=== PATIENT | male | born 1955 | race Caucasian/White ===

== ENCOUNTER 2019-05-30 11:00 | Outpatient (RCR) | payer SELFPAY | END 2019-06-29 00:01 | LOC: CR 11:00 | PROVIDERS: Family Provider Family Medicine; Referring Provider Family Medicine; Visit Provider Internal Medicine Cardiovascular Disease | DX: Z98.61 Coronary angioplasty status (principal) ==

== ENCOUNTER 2019-07-06 14:41 | Outpatient (RCR) | payer SELFPAY | END 2019-07-30 23:59 | disposition home or self-care (01) | LOC: CR 14:41 | PROVIDERS: Family Provider Family Medicine; PCP Family Medicine; Referring Provider Internal Medicine Cardiovascular Disease; Visit Provider Internal Medicine Cardiovascular Disease | DX: Z95.5 Presence of coronary angioplasty implant and graft (principal) | CPT/HCPCS: 93798 ==

== ENCOUNTER 2019-08-02 10:45 | Outpatient (RCR) | payer SELFPAY | END 2019-08-28 23:59 | disposition home or self-care (01) | LOC: CR 10:45 | PROVIDERS: Family Provider Family Medicine; PCP Family Medicine; Referring Provider Internal Medicine Cardiovascular Disease; Visit Provider Internal Medicine Cardiovascular Disease | DX: Z95.5 Presence of coronary angioplasty implant and graft (principal) ==

== ENCOUNTER 2019-12-07 13:00 | Outpatient (RCR) | payer SELFPAY | END 2019-12-28 23:59 | disposition home or self-care (01) | LOC: CR 13:00 | PROVIDERS: Family Provider Family Medicine; PCP Family Medicine; Referring Provider Internal Medicine Cardiovascular Disease; Visit Provider Internal Medicine Cardiovascular Disease | DX: Z95.5 Presence of coronary angioplasty implant and graft (principal) ==

== ENCOUNTER 2020-01-11 11:29 | Outpatient (RCR) | payer SELFPAY | END 2020-01-28 23:59 | disposition home or self-care (01) | LOC: CR 11:29 | PROVIDERS: Family Provider Family Medicine; PCP Family Medicine; Referring Provider Internal Medicine Cardiovascular Disease; Visit Provider Internal Medicine Cardiovascular Disease | DX: Z95.5 Presence of coronary angioplasty implant and graft (principal) ==

== ENCOUNTER 2020-02-01 10:35 | Outpatient (RCR) | payer SELFPAY | END 2020-02-28 23:59 | disposition home or self-care (01) | LOC: CR 10:35 | PROVIDERS: Family Provider Family Medicine; PCP Family Medicine; Referring Provider Internal Medicine Cardiovascular Disease; Visit Provider Internal Medicine Cardiovascular Disease | DX: Z95.5 Presence of coronary angioplasty implant and graft (principal) ==

== ENCOUNTER 2020-02-29 14:12 | Outpatient (RCR) | payer SELFPAY | END 2020-03-29 23:59 | disposition home or self-care (01) | LOC: CR 14:12 | PROVIDERS: Family Provider Family Medicine; PCP Family Medicine; Referring Provider Internal Medicine Cardiovascular Disease; Visit Provider Internal Medicine Cardiovascular Disease | DX: Z95.5 Presence of coronary angioplasty implant and graft (principal) ==

== ENCOUNTER 2020-03-31 10:56 | Outpatient (RCR) | payer SELFPAY | END 2020-04-29 23:59 | disposition home or self-care (01) | LOC: CR 10:56 | PROVIDERS: Family Provider Family Medicine; PCP Family Medicine; Referring Provider Internal Medicine Cardiovascular Disease; Visit Provider Internal Medicine Cardiovascular Disease | DX: Z95.5 Presence of coronary angioplasty implant and graft (principal) ==

== ENCOUNTER 2020-04-30 13:27 | Outpatient (RCR) | payer SELFPAY | END 2020-05-29 23:59 | disposition home or self-care (01) | LOC: CR 13:27 | PROVIDERS: Family Provider Family Medicine; PCP Family Medicine; Referring Provider Internal Medicine Cardiovascular Disease; Visit Provider Internal Medicine Cardiovascular Disease | DX: Z95.5 Presence of coronary angioplasty implant and graft (principal) ==

== ENCOUNTER 2020-06-01 10:51 | Outpatient (RCR) | payer SELFPAY | END 2020-06-29 23:59 | disposition home or self-care (01) | LOC: CR 10:51 | PROVIDERS: Family Provider Family Medicine; PCP Family Medicine; Referring Provider Internal Medicine Cardiovascular Disease; Visit Provider Internal Medicine Cardiovascular Disease | DX: Z95.5 Presence of coronary angioplasty implant and graft (principal) ==

== ENCOUNTER 2020-07-03 12:48 | Outpatient (RCR) | payer SELFPAY | END 2020-07-30 23:59 | disposition home or self-care (01) | LOC: CR 12:48 | PROVIDERS: Family Provider Family Medicine; PCP Family Medicine; Referring Provider Internal Medicine; Visit Provider Internal Medicine | DX: Z95.5 Presence of coronary angioplasty implant and graft (principal) ==

== ENCOUNTER 2020-08-01 10:32 | Outpatient (RCR) | payer SELFPAY | END 2020-08-27 23:59 | disposition home or self-care (01) | LOC: CR 10:32 | PROVIDERS: Family Provider Family Medicine; PCP Family Medicine; Referring Provider Internal Medicine; Visit Provider Internal Medicine | DX: Z95.5 Presence of coronary angioplasty implant and graft (principal) ==

== ENCOUNTER 2020-08-31 09:15 | Outpatient (RCR) | payer SELFPAY | END 2020-09-27 23:59 | disposition home or self-care (01) | LOC: CR 09:15 | PROVIDERS: Family Provider Family Medicine; PCP Family Medicine; Referring Provider Internal Medicine; Visit Provider Internal Medicine | DX: Z95.5 Presence of coronary angioplasty implant and graft (principal) ==

== ENCOUNTER 2020-09-28 14:11 | Outpatient (RCR) | payer SELFPAY | END 2020-10-27 23:59 | disposition home or self-care (01) | LOC: CR 14:11 | PROVIDERS: Family Provider Family Medicine; PCP Family Medicine; Referring Provider Internal Medicine; Visit Provider Internal Medicine | DX: Z95.5 Presence of coronary angioplasty implant and graft (principal) ==

== ENCOUNTER 2020-10-30 10:01 | Outpatient (RCR) | payer SELFPAY | END 2020-11-27 23:59 | disposition home or self-care (01) | LOC: CR 10:01 | PROVIDERS: Family Provider Family Medicine; PCP Family Medicine; Referring Provider Internal Medicine; Visit Provider Internal Medicine | DX: Z95.5 Presence of coronary angioplasty implant and graft (principal) ==

== ENCOUNTER 2020-11-28 13:46 | Outpatient (RCR) | payer SELFPAY | END 2020-12-27 23:59 | disposition home or self-care (01) | LOC: CR 13:46 | PROVIDERS: Family Provider Family Medicine; PCP Family Medicine; Referring Provider Internal Medicine; Visit Provider Internal Medicine | DX: Z95.5 Presence of coronary angioplasty implant and graft (principal) ==

== ENCOUNTER 2021-01-04 13:46 | Outpatient (RCR) | payer SELFPAY | END 2021-01-27 23:59 | disposition home or self-care (01) | LOC: CR 13:46 | PROVIDERS: Family Provider Family Medicine; PCP Family Medicine; Referring Provider Internal Medicine; Visit Provider Internal Medicine | DX: Z95.5 Presence of coronary angioplasty implant and graft (principal) ==

== ENCOUNTER 2021-01-29 14:17 | Outpatient (RCR) | payer SELFPAY | END 2021-02-27 23:59 | disposition home or self-care (01) | LOC: CR 14:17 | PROVIDERS: Family Provider Family Medicine; PCP Family Medicine; Referring Provider Internal Medicine; Visit Provider Internal Medicine | DX: Z95.5 Presence of coronary angioplasty implant and graft (principal) ==

== ENCOUNTER 2021-03-01 09:40 | Outpatient (RCR) | payer SELFPAY | END 2021-03-29 23:59 | disposition home or self-care (01) | LOC: CR 09:40 | PROVIDERS: Family Provider Family Medicine; PCP Family Medicine; Referring Provider Internal Medicine; Visit Provider Internal Medicine | DX: Z95.5 Presence of coronary angioplasty implant and graft (principal) ==

== ENCOUNTER 2021-03-30 08:21 | Outpatient (RCR) | payer SELFPAY | END 2021-04-29 23:59 | disposition home or self-care (01) | LOC: CR 08:21 | PROVIDERS: Family Provider Family Medicine; PCP Family Medicine; Referring Provider Internal Medicine; Visit Provider Internal Medicine | DX: Z95.5 Presence of coronary angioplasty implant and graft (principal) ==

== ENCOUNTER 2021-04-30 12:00 | Outpatient (RCR) | payer SELFPAY | END 2021-05-29 23:59 | disposition home or self-care (01) | LOC: CR 12:00 | PROVIDERS: Family Provider Family Medicine; PCP Family Medicine; Referring Provider Internal Medicine; Visit Provider Internal Medicine | DX: Z95.5 Presence of coronary angioplasty implant and graft (principal) ==

== ENCOUNTER 2021-05-30 09:47 | Outpatient (RCR) | payer SELFPAY | END 2021-06-29 23:59 | disposition home or self-care (01) | LOC: CR 09:47 | PROVIDERS: Family Provider Family Medicine; PCP Family Medicine; Referring Provider Internal Medicine; Visit Provider Internal Medicine | DX: Z95.5 Presence of coronary angioplasty implant and graft (principal) ==

== ENCOUNTER 2021-07-02 10:38 | Outpatient (RCR) | payer SELFPAY | END 2021-07-30 23:59 | disposition home or self-care (01) | LOC: CR 10:38 | PROVIDERS: Family Provider Family Medicine; PCP Family Medicine; Referring Provider Internal Medicine; Visit Provider Internal Medicine | DX: Z95.5 Presence of coronary angioplasty implant and graft (principal) | CPT/HCPCS: 93798 ==

== ENCOUNTER 2021-08-06 11:32 | Outpatient (RCR) | payer SELFPAY | END 2021-08-27 23:59 | disposition home or self-care (01) | LOC: CR 11:32 | PROVIDERS: Family Provider Family Medicine; PCP Family Medicine; Referring Provider Internal Medicine; Visit Provider Internal Medicine | DX: Z95.5 Presence of coronary angioplasty implant and graft (principal) ==

== ENCOUNTER 2021-08-28 12:21 | Outpatient (RCR) | payer SELFPAY | END 2021-09-27 23:59 | disposition home or self-care (01) | LOC: CR 12:21 | PROVIDERS: Family Provider Family Medicine; PCP Family Medicine; Referring Provider Internal Medicine; Visit Provider Internal Medicine | DX: Z95.5 Presence of coronary angioplasty implant and graft (principal) ==

== ENCOUNTER 2021-09-28 12:16 | Outpatient (RCR) | payer SELFPAY | END 2021-10-27 23:59 | disposition home or self-care (01) | LOC: CR 12:16 | PROVIDERS: Family Provider Family Medicine; PCP Family Medicine; Referring Provider Internal Medicine; Visit Provider Internal Medicine | DX: Z95.5 Presence of coronary angioplasty implant and graft (principal) | CPT/HCPCS: 93798 ==

== ENCOUNTER 2021-10-29 11:37 | Outpatient (RCR) | payer SELFPAY | END 2021-11-27 23:59 | disposition home or self-care (01) | LOC: CR 11:37 | PROVIDERS: Family Provider Family Medicine; PCP Family Medicine; Referring Provider Internal Medicine; Visit Provider Internal Medicine | DX: Z95.5 Presence of coronary angioplasty implant and graft (principal) ==

== ENCOUNTER 2021-11-28 11:17 | Outpatient (RCR) | payer SELFPAY | END 2021-12-27 23:59 | disposition home or self-care (01) | LOC: CR 11:17 | PROVIDERS: Family Provider Family Medicine; PCP Family Medicine; Referring Provider Internal Medicine; Visit Provider Internal Medicine | DX: Z95.5 Presence of coronary angioplasty implant and graft (principal) ==

== ENCOUNTER 2021-12-28 10:36 | Outpatient (RCR) | payer SELFPAY | END 2022-01-27 23:59 | disposition home or self-care (01) | LOC: CR 10:36 | PROVIDERS: Family Provider Family Medicine; PCP Family Medicine; Referring Provider Internal Medicine; Visit Provider Internal Medicine | DX: Z95.5 Presence of coronary angioplasty implant and graft (principal) ==

== ENCOUNTER 2022-01-28 14:08 | Outpatient (RCR) | payer SELFPAY | END 2022-02-27 23:59 | disposition home or self-care (01) | LOC: CR 14:08 | PROVIDERS: Family Provider Family Medicine; PCP Family Medicine; Referring Provider Internal Medicine; Visit Provider Internal Medicine | DX: Z95.5 Presence of coronary angioplasty implant and graft (principal) ==

== ENCOUNTER 2022-02-28 12:35 | Outpatient (RCR) | payer SELFPAY | END 2022-03-29 23:59 | disposition home or self-care (01) | LOC: CR 12:35 | PROVIDERS: Family Provider Family Medicine; PCP Family Medicine; Referring Provider Internal Medicine; Visit Provider Internal Medicine | DX: Z95.5 Presence of coronary angioplasty implant and graft (principal) ==

== ENCOUNTER 2022-04-03 11:08 | Outpatient (RCR) | payer SELFPAY | END 2022-04-29 23:59 | disposition home or self-care (01) | LOC: CR 11:08 | PROVIDERS: Family Provider Family Medicine; PCP Family Medicine; Referring Provider Internal Medicine; Visit Provider Internal Medicine | DX: Z95.5 Presence of coronary angioplasty implant and graft (principal) ==

== ENCOUNTER 2022-04-30 14:31 | Outpatient (RCR) | payer SELFPAY | END 2022-05-29 23:59 | disposition home or self-care (01) | LOC: CR 14:31 | PROVIDERS: Family Provider Family Medicine; PCP Family Medicine; Referring Provider Internal Medicine; Visit Provider Internal Medicine | DX: Z95.5 Presence of coronary angioplasty implant and graft (principal) ==

== ENCOUNTER 2022-05-30 14:35 | Outpatient (RCR) | payer SELFPAY | END 2022-06-29 23:59 | disposition home or self-care (01) | LOC: CR 14:35 | PROVIDERS: Family Provider Family Medicine; PCP Family Medicine; Referring Provider Internal Medicine; Visit Provider Internal Medicine | DX: Z95.5 Presence of coronary angioplasty implant and graft (principal) ==

== ENCOUNTER 2022-07-03 12:50 | Outpatient (RCR) | payer SELFPAY | END 2022-07-30 23:59 | disposition home or self-care (01) | LOC: CR 12:50 | PROVIDERS: Family Provider Family Medicine; PCP Family Medicine; Referring Provider Internal Medicine; Visit Provider Internal Medicine | DX: Z95.5 Presence of coronary angioplasty implant and graft (principal) ==

== ENCOUNTER 2022-07-31 15:08 | Outpatient (RCR) | payer SELFPAY | END 2022-08-27 23:59 | disposition home or self-care (01) | LOC: CR 15:08 | PROVIDERS: Family Provider Family Medicine; PCP Family Medicine; Referring Provider Internal Medicine; Visit Provider Internal Medicine | DX: Z95.5 Presence of coronary angioplasty implant and graft (principal) ==

== ENCOUNTER → 2022-08-07 14:11 | Outpatient (BNVA) | payer MEDICARE, OTHER, SELFPAY | PROVIDERS: Family Provider Family Medicine; PCP Family Medicine; Visit Provider Internal Medicine | DX: I25.10 Atherosclerotic heart disease of native coronary artery without angina pectoris (principal); Z98.61 Coronary angioplasty status; E78.5 Hyperlipidemia, unspecified; I21.9 Acute myocardial infarction, unspecified; I12.9 Hypertensive chronic kidney disease with stage 1 through stage 4 chronic kidney disease, or unspecified chronic kidney disease; N18.9 Chronic kidney disease, unspecified; Z87.891 Personal history of nicotine dependence | CPT/HCPCS: 99214 ==

== ENCOUNTER 2022-08-28 14:59 | Outpatient (RCR) | payer SELFPAY | END 2022-09-27 23:59 | disposition home or self-care (01) | LOC: CR 14:59 | PROVIDERS: Family Provider Family Medicine; PCP Family Medicine; Referring Provider Internal Medicine; Visit Provider Internal Medicine | DX: Z95.5 Presence of coronary angioplasty implant and graft (principal) ==

== ENCOUNTER 2022-09-30 13:27 | Outpatient (RCR) | payer SELFPAY | END 2022-10-27 23:59 | disposition home or self-care (01) | LOC: CR 13:27 | PROVIDERS: Family Provider Family Medicine; PCP Family Medicine; Referring Provider Internal Medicine; Visit Provider Internal Medicine | DX: Z95.5 Presence of coronary angioplasty implant and graft (principal) ==

== ENCOUNTER 2022-10-28 15:37 | Outpatient (RCR) | payer SELFPAY | END 2022-11-27 23:59 | disposition home or self-care (01) | LOC: CR 15:37 | PROVIDERS: Family Provider Family Medicine; PCP Family Medicine; Referring Provider Internal Medicine; Visit Provider Internal Medicine | DX: Z95.5 Presence of coronary angioplasty implant and graft (principal) ==

== ENCOUNTER 2022-11-29 13:14 | Outpatient (RCR) | payer SELFPAY | END 2022-12-27 23:59 | disposition home or self-care (01) | LOC: CR 13:14 | PROVIDERS: Family Provider Family Medicine; PCP Family Medicine; Referring Provider Internal Medicine; Visit Provider Internal Medicine | DX: Z95.5 Presence of coronary angioplasty implant and graft (principal) ==

== ENCOUNTER 2022-12-30 10:46 | Outpatient (RCR) | payer SELFPAY | END 2023-01-27 23:59 | disposition home or self-care (01) | LOC: CR 10:46 | PROVIDERS: Family Provider Family Medicine; PCP Family Medicine; Referring Provider Internal Medicine; Visit Provider Internal Medicine | DX: Z95.5 Presence of coronary angioplasty implant and graft (principal) ==

== ENCOUNTER → 2023-01-08 15:08 | Outpatient (BNVA) | payer MEDICARE, OTHER, SELFPAY | PROVIDERS: Family Provider Family Medicine; PCP Family Medicine; Visit Provider Internal Medicine | DX: R00.1 Bradycardia, unspecified (principal) | CPT/HCPCS: 93005 ==

== ENCOUNTER 2023-01-28 14:23 | Outpatient (RCR) | payer SELFPAY | END 2023-02-27 23:59 | disposition home or self-care (01) | LOC: CR 14:23 | PROVIDERS: Family Provider Family Medicine; PCP Family Medicine; Referring Provider Internal Medicine; Visit Provider Internal Medicine | DX: Z95.5 Presence of coronary angioplasty implant and graft (principal) ==

== ENCOUNTER 2023-02-28 11:15 | Outpatient (RCR) | payer SELFPAY | END 2023-03-29 23:59 | disposition home or self-care (01) | LOC: CR 11:15 | PROVIDERS: Family Provider Family Medicine; PCP Family Medicine; Referring Provider Internal Medicine; Visit Provider Internal Medicine | DX: Z95.5 Presence of coronary angioplasty implant and graft (principal) ==

== ENCOUNTER 2023-04-01 09:02 | Outpatient (RCR) | payer SELFPAY | END 2023-04-29 23:59 | disposition home or self-care (01) | LOC: CR 09:02 | PROVIDERS: Family Provider Family Medicine; PCP Family Medicine; Referring Provider Internal Medicine; Visit Provider Internal Medicine | DX: Z95.5 Presence of coronary angioplasty implant and graft (principal) ==

== ENCOUNTER 2023-05-01 14:59 | Outpatient (RCR) | payer SELFPAY | END 2023-05-29 23:59 | disposition home or self-care (01) | LOC: CR 14:59 | PROVIDERS: Family Provider Family Medicine; PCP Family Medicine; Referring Provider Internal Medicine; Visit Provider Internal Medicine | DX: Z95.5 Presence of coronary angioplasty implant and graft (principal) ==

== ENCOUNTER 2023-06-03 11:10 | Outpatient (RCR) | payer SELFPAY | END 2023-06-29 23:59 | disposition home or self-care (01) | LOC: CR 11:10 | PROVIDERS: Family Provider Family Medicine; PCP Family Medicine; Referring Provider Internal Medicine; Visit Provider Internal Medicine | DX: Z95.5 Presence of coronary angioplasty implant and graft (principal) ==

== ENCOUNTER 2023-07-01 09:39 | Outpatient (RCR) | payer SELFPAY | END 2023-07-30 23:59 | disposition home or self-care (01) | LOC: CR 09:39 | PROVIDERS: Family Provider Family Medicine; PCP Family Medicine; Referring Provider Internal Medicine; Visit Provider Internal Medicine | DX: Z95.5 Presence of coronary angioplasty implant and graft (principal) ==

== ENCOUNTER 2023-07-31 10:46 | Outpatient (RCR) | payer SELFPAY | END 2023-08-28 23:59 | disposition home or self-care (01) | LOC: CR 10:46 | PROVIDERS: Family Provider Family Medicine; PCP Family Medicine; Referring Provider Internal Medicine; Visit Provider Internal Medicine | DX: Z95.5 Presence of coronary angioplasty implant and graft (principal) ==

== ENCOUNTER → 2023-08-06 13:44 | Outpatient (BNVA) | payer MEDICARE, OTHER, SELFPAY | PROVIDERS: Family Provider Family Medicine; PCP Family Medicine; Visit Provider Internal Medicine | DX: I25.10 Atherosclerotic heart disease of native coronary artery without angina pectoris (principal); I12.9 Hypertensive chronic kidney disease with stage 1 through stage 4 chronic kidney disease, or unspecified chronic kidney disease; N18.9 Chronic kidney disease, unspecified; Z98.61 Coronary angioplasty status; E78.5 Hyperlipidemia, unspecified; I25.2 Old myocardial infarction; Z87.891 Personal history of nicotine dependence | CPT/HCPCS: 99214 ==

== ENCOUNTER 2023-09-01 11:12 | Outpatient (RCR) | payer SELFPAY | END 2023-09-28 23:59 | disposition home or self-care (01) | LOC: CR 11:12 | PROVIDERS: Family Provider Family Medicine; PCP Family Medicine; Referring Provider Internal Medicine; Visit Provider Internal Medicine | DX: Z95.5 Presence of coronary angioplasty implant and graft (principal) ==

== ENCOUNTER 2023-10-30 12:44 | Outpatient (RCR) | payer SELFPAY | END 2023-11-28 23:59 | disposition home or self-care (01) | LOC: CR 12:44 | PROVIDERS: Family Provider Family Medicine; PCP Family Medicine; Referring Provider Internal Medicine; Visit Provider Internal Medicine | DX: Z95.5 Presence of coronary angioplasty implant and graft (principal) ==

== ENCOUNTER 2023-12-02 11:12 | Outpatient (RCR) | payer SELFPAY | END 2023-12-28 23:59 | disposition home or self-care (01) | LOC: CR 11:12 | PROVIDERS: Family Provider Family Medicine; PCP Family Medicine; Referring Provider Internal Medicine; Visit Provider Internal Medicine | DX: Z95.5 Presence of coronary angioplasty implant and graft (principal) ==

== ENCOUNTER 2023-12-29 14:59 | Outpatient (RCR) | payer SELFPAY | END 2024-01-28 23:59 | disposition home or self-care (01) | LOC: CR 14:59 | PROVIDERS: Family Provider Family Medicine; PCP Family Medicine; Referring Provider Internal Medicine; Visit Provider Internal Medicine | DX: Z95.5 Presence of coronary angioplasty implant and graft (principal) ==

== ENCOUNTER 2024-01-29 08:16 | Outpatient (RCR) | payer SELFPAY | END 2024-03-04 09:20 | disposition home or self-care (01) | LOC: CR 08:16 | PROVIDERS: Family Provider Family Medicine; PCP Family Medicine; Referring Provider Internal Medicine; Visit Provider Internal Medicine | DX: Z95.5 Presence of coronary angioplasty implant and graft (principal) ==

== ENCOUNTER 2024-02-29 11:55 | Outpatient (RCR) | payer SELFPAY | END 2024-03-29 23:59 | disposition home or self-care (01) | LOC: CR 11:55 | PROVIDERS: Family Provider Family Medicine; PCP Family Medicine; Referring Provider Internal Medicine; Visit Provider Internal Medicine | DX: Z95.5 Presence of coronary angioplasty implant and graft (principal) ==

== ENCOUNTER 2024-03-30 12:23 | Outpatient (RCR) | payer SELFPAY | END 2024-04-29 23:59 | disposition home or self-care (01) | LOC: CR 12:23 | PROVIDERS: Family Provider Family Medicine; PCP Family Medicine; Referring Provider Internal Medicine; Visit Provider Internal Medicine | DX: Z95.5 Presence of coronary angioplasty implant and graft (principal) ==

== ENCOUNTER 2024-04-30 12:46 | Outpatient (RCR) | payer SELFPAY | END 2024-05-29 23:59 | disposition home or self-care (01) | LOC: CR 12:46 | PROVIDERS: Family Provider Family Medicine; PCP Family Medicine; Referring Provider Internal Medicine; Visit Provider Internal Medicine | DX: Z95.5 Presence of coronary angioplasty implant and graft (principal) | CPT/HCPCS: 93798 ==

== ENCOUNTER 2024-05-31 12:16 | Outpatient (RCR) | payer SELFPAY | END 2024-06-29 23:59 | disposition home or self-care (01) | LOC: CR 12:16 | PROVIDERS: Family Provider Family Medicine; PCP Family Medicine; Referring Provider Internal Medicine; Visit Provider Internal Medicine | DX: Z95.5 Presence of coronary angioplasty implant and graft (principal) ==

== ENCOUNTER 2024-07-08 08:54 | Outpatient (RCR) | payer SELFPAY | END 2024-07-30 23:59 | disposition home or self-care (01) | LOC: CR 08:54 | PROVIDERS: Family Provider Family Medicine; PCP Family Medicine; Referring Provider Internal Medicine; Visit Provider Internal Medicine | DX: Z95.5 Presence of coronary angioplasty implant and graft (principal) ==

== ENCOUNTER 2024-08-03 13:32 | Outpatient (RCR) | payer SELFPAY | END 2024-08-27 23:59 | disposition home or self-care (01) | LOC: CR 13:32 | PROVIDERS: Family Provider Family Medicine; PCP Family Medicine; Referring Provider Internal Medicine; Visit Provider Internal Medicine | DX: Z95.5 Presence of coronary angioplasty implant and graft (principal) ==

== ENCOUNTER → 2024-08-04 13:21 | Outpatient (BNVA) | payer MEDICARE, OTHER, SELFPAY | PROVIDERS: Family Provider Family Medicine; PCP Family Medicine; Visit Provider Internal Medicine | DX: I25.10 Atherosclerotic heart disease of native coronary artery without angina pectoris (principal); I12.9 Hypertensive chronic kidney disease with stage 1 through stage 4 chronic kidney disease, or unspecified chronic kidney disease; N18.9 Chronic kidney disease, unspecified; Z98.61 Coronary angioplasty status; E78.5 Hyperlipidemia, unspecified; I25.2 Old myocardial infarction; F17.220 Nicotine dependence, chewing tobacco, uncomplicated | CPT/HCPCS: 99214 ==

== ENCOUNTER 2024-08-28 11:29 | Outpatient (RCR) | payer SELFPAY | END 2024-09-27 23:59 | disposition home or self-care (01) | LOC: CR 11:29 | PROVIDERS: Family Provider Family Medicine; PCP Family Medicine; Referring Provider Internal Medicine; Visit Provider Internal Medicine | DX: Z95.5 Presence of coronary angioplasty implant and graft (principal) ==

== ENCOUNTER 2024-09-28 13:14 | Outpatient (RCR) | payer SELFPAY | END 2024-10-27 23:59 | disposition home or self-care (01) | LOC: CR 13:14 | PROVIDERS: Family Provider Family Medicine; PCP Family Medicine; Referring Provider Internal Medicine; Visit Provider Internal Medicine | DX: Z95.5 Presence of coronary angioplasty implant and graft (principal) ==

== ENCOUNTER 2024-10-28 10:35 | Outpatient (RCR) | payer SELFPAY | END 2024-11-27 23:59 | disposition home or self-care (01) | LOC: CR 10:35 | PROVIDERS: Family Provider Family Medicine; PCP Family Medicine; Referring Provider Internal Medicine; Visit Provider Internal Medicine | DX: Z95.5 Presence of coronary angioplasty implant and graft (principal) | CPT/HCPCS: 93798 ==

== ENCOUNTER 2024-11-12 09:51 | Outpatient (CLI) | payer MEDICARE, OTHER, SELFPAY | END 2024-11-12 09:52 | disposition home or self-care (01) | LOC: RAD 11-16 06:53 | PROVIDERS: Family Provider Family Medicine; PCP Family Medicine; Visit Provider Internal Medicine | DX: R06.02 Shortness of breath (principal); I12.9 Hypertensive chronic kidney disease with stage 1 through stage 4 chronic kidney disease, or unspecified chronic kidney disease; N18.9 Chronic kidney disease, unspecified; F17.220 Nicotine dependence, chewing tobacco, uncomplicated | CPT/HCPCS: 93005; 99214 ==

== ENCOUNTER 2024-11-30 11:01 | Outpatient (RCR) | payer SELFPAY | END 2024-12-27 23:59 | disposition home or self-care (01) | LOC: CR 11:01 | PROVIDERS: PCP Family Medicine; Referring Provider Internal Medicine; Visit Provider Internal Medicine | DX: Z95.5 Presence of coronary angioplasty implant and graft (principal) ==

== ENCOUNTER 2024-12-01 07:27 | Outpatient (CLI) | payer MEDICARE, OTHER, SELFPAY ==
[2024-12-01 07:49] VITALS: BMI 25.4
--- NOTE | 2024-12-01 07:52 | ECG_ITS ---
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 Interpretive Statements EXERCISE MIBI : EXERCISE DATA: The patient was exercised by Gene protocol. Baseline heart rate was 62 beats per minute. Baseline blood pressure was 86/63 millimeters of mercury. Maximal predicted heart rate was 149 beats per minute. Maximum heart rate achieved was 133 which was 89% of the maximum predicted heart rate. Maximum blood pressure was 160/75 millimeters of mercury. Total exercise time was 11 minutes and 45 seconds. Maximum METs achieved was 15.8. The reason for ending the test was completion of protocol. The patient complained of shortness of breath during the stress test, which then resolved at the end of the test. ELECTROCARDIOGRAM: BASELINE: Showed sinus rhythm, normal axis, no significant ST-T changes at the baseline noted. [] EXERCISE: At the peak exercise level, [] No significant ST-T changes suggestive of ischemia noted. [] RECOVERY: During the recovery period, heart rate dropped appropriately. No significant ST-T changes in the recovery suggestive of ischemia noted. [] CONCLUSION: 1. Exercise capacity is excellent 2. Heart rate response was appropriate 3. Blood pressure response was appropriate. 4. Symptoms not suggestive of ischemia. 5. Electrocardiogram portion of the stress test was not suggestive of ischemia. 6. Nuclear scan will be documented separately. Electronically Signed On 12-16-2024 00:24:58 CDT by Oneil Camilo M.D. [email or web address]
--- NOTE | 2024-12-01 07:53 | NMCV_ITS ---
NM tania perf SPECT r/s* [id number] Dipesh Dominguez Age: 69 Gender: M : 1955 Exam Date: 12/01/2024 08:58 Ordering Phys: Katelyn Orozco NP Technologist: IVAN Pearson Exam [facility]: [facility] Indications: cp STRESS TEST Please see separate stress test report in [facility] for full findings IMAGE PROTOCOL Rest/Stress 1 Exercise Day Radiopharmaceutical Dose (mCi) Administration Site Administered by Rest: Tc-99m 10.4 IV IVAN Easton Sestamibi Stress:Tc-99m 32.6 IV IVAN Pearson Sestamiessence Rest: 01-Dec-2024 60 Discovery 630 Stress: 01-Dec-2024 30 Discovery 630 Radiopharmaceutical was injected at 85 % maximum heart rate. Images obtained in supine and prone position. SPECT RESULTS Technical Quality: Good Raw Data Analysis: Normal Image Corrections: No attenuation or motion correction applied Summed Stress Score: 4 Summed Rest Score: 0 Summed Difference Score: 4 PERFUSION FINDINGS Medium to large sized area of reversible perfusion defect seen in the inferior wall. This is consistent with medium to large sized area of ischemia in the RCA territory. FUNCTIONAL RESULTS (calculated via Gated SPECT) Stress Image LV EF (%): 70 Stress EDV (mL):93 TID: 0.95 Stress ESV (mL):28 FUNCTIONAL FINDINGS: There is normal left ventricular systolic function. IMPRESSIONS 1. Medium to large sized area of ischemia in RCA territory. 2. LV systolic function is normal Oneil Camilo MD (Electronically Signed) Final Date: 06 December 2024 11:22 S
[2024-12-01 09:50] VITALS: BP 132/84; PULSE 78
== END 2024-12-01 07:28 | disposition home or self-care (01) ==
LOC: CDL 07:30
PROVIDERS: PCP Family Medicine; Visit Provider Nurse Practitioner Family
DX: R06.02 Shortness of breath (principal); R93.1 Abnormal findings on diagnostic imaging of heart and coronary circulation
CPT/HCPCS: 36415; 78452; 93017; A9500

== ENCOUNTER 2024-12-07 12:23 | Outpatient (CLI) | payer MEDICARE, OTHER, SELFPAY ==
[2024-12-07 12:52] LABS: Basophils # 0.1 10^3/uL (0.0-0.1); Basophils % 0.9 %; Eosinophils # 0.4 10^3/uL (0.0-0.8); Eosinophils % 6.6 %; Hematocrit 44.1 % (37-53); Lymphocytes # 1.1 10^3/uL (0.8-4.8); Lymphocytes % 20.9 %; Mean Corpuscular HGB Conc 33.6 g/dL (30-55); Mean Corpuscular Hemoglobin 29.8 pg (27-33); Mean Corpuscular Volume 88.7 fl (82-101); Mean Platelet Volume 10.9 fL (7.4-10.4); Monocytes # 0.7 10^3/uL (0.2-0.9); Monocytes % 11.9 %; Neutrophils # 3.24 10^3/uL (1.8-7.7); Neutrophils % 59.5 %; Nucleated Red Blood Cells % 0 %; Platelet Count 149 10^3/cmm (157-399); Red Blood Count 4.97 10^6/uL (3.85-5.65); Red Cell Distribution Width 12.3 % (12.1-15.1); White Blood Count 5.45 10^3/uL (3.29-11.43)
[2024-12-07 13:09] LABS: Blood Urea Nitrogen 12 mg/dL (8-23); Calcium 9.3 mg/dL (8.5-10.5); Carbon Dioxide 25 mmol/L (22-29); Chloride 103 mmol/L (98-107); Glucose 129 mg/dL (65-115); Osmolality Calculated 289 mOsm/kg (285-295); Sodium 139 mmol/L (136-145)
[2024-12-07 13:11] LABS: INR 0.96 (0.83-1.21); Prothrombin Time (Patient) 13.4 Seconds (12.0-15.1)
== END 2024-12-07 12:24 | disposition home or self-care (01) ==
LOC: LAB 12:23
PROVIDERS: PCP Family Medicine; Visit Provider Internal Medicine
DX: R94.39 Abnormal result of other cardiovascular function study (principal); I10 Essential (primary) hypertension
CPT/HCPCS: 36415; 80048; 85025; 85610

== ENCOUNTER 2024-12-10 08:50 | Outpatient (CLI) | payer MEDICARE, OTHER, SELFPAY ==
[2024-12-10] VITALS (14 sets, daily range): BP systolic 95–123; BP diastolic 61–82; PULSE 50–57; RESP 12–18; TEMP 36.6; O2SAT 92–99; BMI 25.4
--- NOTE | 2024-12-10 08:30 | XACV_ITS ---
Exam Room: 2 Ht: 180 cm Wt: 83 kg BSA: 2.04 m2 Gender: Male : 1955 Any Known Allergies: Codeine Exam Priority: Routine Procedure(s): Procedure Description: Diagnostic procedure Procedure Description: Left Heart Catheterization Procedure Description: Left ventriculography Procedure Description: Coronary Angiography Diagnostic Cath Status: Elective Diagnostic Findings * INDICATION: New onset angina/ abnormal stress test. * No disease noted in the Left Main, Left Anterior Descending, Right, or Circumflex coronary arteries. Patent prior stents in RCA, diagonal and left circumflex arteries. * Coronary angiography shows right dominance. Conclusions 1. No disease noted in the Left Main, Left Anterior Descending, Right, or Circumflex coronary arteries. Patent prior stents in RCA, diagonal and left circumflex arteries. 2. Normal left ventricular systolic function. Ejection fraction of 60%. Recommendations * Continue aggressive risk factor modification. * Outpatient cardiology follow up in 2 weeks. Interventional RX Recommendation: medical therapy and/or counseling Diagnostic RX Recommendation: medical therapy and/or counseling Anticoagulation: Heparin Ventriculography Ejection Fraction: 60.0 % Pressures Phase:Rest AO : 98 / 74 ( 87 ) @ 11:00:00 AM 103 / 54 ( 75 ) @ 11:07:00 AM 101 / 53 ( 75 ) @ 11:07:00 AM LV : / - @ 11:06:00 AM / - @ 11:07:00 AM / - 15 @ 11:07:00 AM Valves Phase:DefaultPhase AV : 9.0 @ 10:12:24 AM 9.0 @ 10:12:24 AM AV Mean Gradient: 12.0 @ 10:12:24 AM Clinical Evaluation EBL: 5mL-10mL Procedural Details Pre-Procedure Time Out. Identified patient by full name and date of as verbalized by the patient/guarantor. Does the consent match the physician's order: Yes. Accurate & Complete Informed Consent: Yes. Inpatient/Outpatient History & Physical on Chart: Yes. If H&P is completed, is and addenduem needed: No; If yes, is the addendum complete: N/A. Visualize and Verify Site with Patient/Guarantor: N/A. Relevant Radiology Images available: Yes. Pre-op teaching completed and patient verbalized understanding. The risks, benefits, and alternatives of sedation and/or procedure were discussed by physician. The patient agrees to continue. Procedure started. Physician arrived. Current Diagnosis : Chest Pain. [facility] Clinical Fraility Score: 3: Managing Well. Chief Privacy Officer Indications: Suspected CAD. Chest Pain Symptom Assessment: Typical Angina Symptoms. Correct patient, site and procedure confirmed by cath team. Current diagnosis: Chest Pain. PERRLA. Strong, equal hand tobacco grower bilaterally. Lungs clear x 5 lobes. IV Site on Arrival: 20 gauge in the left anticubital. IV Fluids: 0.9% NaCl at KVO. 0 mL infused prior to microbiological lab technician. Pre Procedural Pulses: bilateral dorsalis pedis was 3+. Pre Procedural Pulses: bilateral posterior tibial was 3+. Pre Procedural Pulses: bilateral radial was 3+. Oxygen started at 2liters/min via nasal canula. right groin was prepped with chloroprep then draped in the usual sterile fashion. right radial was prepped with chloroprep then draped in the usual sterile fashion. Baseline sample Acquired. HR: 61 BPM. Physician scrubbed in. Immediate Pre-Procedure Time Out. Correct Patient: Yes; Correct Procedure: Yes; Correct Site: Yes; Correct Patient Position: Yes; Correct Supplies: Yes; Dried Flammable Prep: Yes; Blood Products Available: N/A;. Lidocaine 1% infiltrated to the right radial. Arterial access obtained with micropuncture set. A 5 sao tomean TIG catheter in over wire. Catheter removed over the exchange wire. A 5 sao tomean JR4 catheter in over wire. Multiple views taken of right coronary artery. Catheter removed over the exchange wire. A 5 sao tomean JL3.5 catheter in over wire. Multiple views taken of left coronary artery. Catheter removed over the exchange wire. A 5 sao tomean Angled Pig catheter in over wire. Catheter removed over the exchange wire. A 5 sao tomean JR4 catheter in over wire. Catheter removed over the exchange wire. A 5 sao tomean Angled Pig catheter in over wire. EDP Sample taken: LV 111/-2,17; HR: 50 BPM; SpO2: 96%. LV gram performed in [place] @ 10 mL/second for a total of 30 mL. EDP Sample taken: LV 111/-3,15; HR: 50 BPM; SpO2: 95%. Pullback taken: LV 111/-3,15; AO 103/54(75); Mean: 12mmHg, Peak to Peak: 9mmHg, SEP: 16sec/min; HR: 50 BPM; SpO2: 96%. Catheter removed over the exchange wire. Physician scrubbed out. A TR Band was successful obtaining hemostatsis at the Right Radial artery insertion site. Vital chart was stopped. Post Procedure: Pulses reassessed and unchanged. PERRLA. Strong, equal hand tobacco grower bilaterally. No VTE prophylaxis required. Medication's Wasted: Lidocaine 1% = 18 mL. Medication's Wasted: Nitro = 49.8 mcg. Medication's Wasted: Heparin = 1000 units. Medication's Wasted: Other = Fentanyl 50 mcg. Total IV fluids: 270 mL. Post-op diagnosis: Non-obstructive CAD. Complications: None. Estimated blood loss: 5mL-10mL. Responsiveness - Normal response to verbal stimuli; alert and oriented, PERRLA. Airway - Unaffected, no intervention required; spontaneous ventilation. Circulation: W/N/L, pulses unchanged. Nausea/Vomiting: No. Procedure completed. Patient transferred by wheelchair to CPRU. Access Site Site: Right Radial artery Sheath Size: 6 Fr Hemostasis Method: TR Band Hemostasis Success: Successful Procedure Medications Start: 9:43 AM Stop: 9:43 AM Medication: Zofran (ondansetron) Amount: 4 mg Route: I.V. Start: 9:43 AM Stop: 9:43 AM Medication: Versed Amount: 1 mg Route: I.V. Start: 9:43 AM Stop: 9:43 AM Medication: Fentanyl Amount: 50 mcg Route: I.V. Start: 9:50 AM Stop: 9:50 AM Medication: Versed Amount: 1 mg Route: I.V. Start: 9:51 AM Stop: 9:51 AM Medication: Nitrogylcerin Amount: 200 mcg Route: I.A. Start: 9:52 AM Stop: 9:52 AM Medication: Heparin Amount: 5000 units Route: I.V. Start: 10:04 AM Stop: 10:04 AM Medication: 0.9% Saline Amount: 250 ml Route: I.V. bolus I, the attending physician, have reviewed and verified all procedure medications. Yes, all medications given per verbal order History/Risk Factors Hypertension: Yes Dyslipidemia: Yes Peripheral Arterial Disease (PAD): No Myocardial Infarction (IN): Yes Obesity: No Renal Disease: No Tobacco Use: Current/Recent(w/in 1 year) Prior Interventions PCI: Yes CABG: No Valve Surgery: No Date of PCI: 10/16/2005 Report Signatures Finalized by Oneil Camilo MD on 12/25/2024 03:12 PM
[2024-12-10] MEDS: diphenhydrAMINE 50 mg Capsule PO (09:25)
[2024-12-10] MEDS: aspirin 325 mg Tablet PO (09:25)
--- NOTE | 2024-12-10 09:43 | W.PM.OPSUD ---
Surgery/Procedure H&P Update DATE OF PROCEDURE: December 10, 2024 DATE H&P PERFORMED: 11/12/24 H&P UPDATE INFORMATION: I have reviewed H&P completed within last 30 days, I have examined patient prior to procedure and No changes to prior documentation PREOP DIAGNOSIS: New onset angina/ abnormal stress test PRIMARY INDICATION FOR PROCEDURE: New onset angina/ abnormal stress test PLANNED PROCEDURE: Operation Date: 12/10/24 10:00 Proposed Procedures p Cardiac Catheterization - C w/w/o LV & Coros(Left) - Oneil Camilo M.D Possible percutanoeus coronary intervention PATIENT REASSESSED PRIOR TO SEDATION, WITH NO CHANGE NOTED: Yes PHYSICAL EXAM: alert, oriented x 3, clear to auscultation bilaterally and regular rate & rhythm AIRWAY EVAL/ANESTHESIA PLAN: normal airway, see other exam findings, ASA III, Local Anesthesia, Risks, benefits & alternatives of sedation and/or procedure discussed and Patient agrees to continue as planned ADDITIONAL INFORMATION: Moderate sedation
--- NOTE | 2024-12-10 10:22 | SUR.PHASEII ---
POST CATH NOTE Recieved patient from skilled laborer. Status post cardiac catheterization via the right radial approach. TR Band in place to right radial artery. Site is hemostatic without s/s of hematoma formation or active bleeding. See PCS documentation for further assessment. Post cath fluids set at 100 ml/hr per verbal order from Dr Camilo. Call [facility] in reach. Informed to call for needs.
--- NOTE | 2024-12-10 11:20 | P.PCN_ITS ---
Procedure Note: Date of procedure: 12/10/24 Pre-procedure diagnosis: Chest pain/abnormal stress test Post-procedure diagnosis: other Procedure: Patent prior stent. No significant stenosis Medical therapy Outpatient cardiology follow up Performing Provider: Oneil Camilo Complications: None Condition: stable Disposition: same day Coding Level of Care Code Acute Code for [facility]
== END 2024-12-10 13:45 | disposition home or self-care (01) ==
PROVIDERS: PCP Family Medicine; Visit Provider Internal Medicine
DX: R94.39 Abnormal result of other cardiovascular function study (principal); I25.119 Atherosclerotic heart disease of native coronary artery with unspecified angina pectoris; E78.5 Hyperlipidemia, unspecified; I25.2 Old myocardial infarction; Z95.5 Presence of coronary angioplasty implant and graft; Z79.82 Long term (current) use of aspirin; F17.220 Nicotine dependence, chewing tobacco, uncomplicated; I12.9 Hypertensive chronic kidney disease with stage 1 through stage 4 chronic kidney disease, or unspecified chronic kidney disease; N18.9 Chronic kidney disease, unspecified; K21.9 Gastro-esophageal reflux disease without esophagitis
CPT/HCPCS: 36415; 93458; 96374; 99152; 99153; C1769; C1887; C1894; J1644; J2250; J2405; J3010; J3490; J7030; J9999; Q0163; Q9967

== ENCOUNTER 2024-12-21 11:07 | Outpatient (CLI) | payer MEDICARE, OTHER, SELFPAY ==
--- NOTE | 2024-12-21 11:15 | USCV_ITS ---
Alberto Dipesh Age: 69 Gender: M : 1955 Exam Date: 12/21/2024 11:25 Ordering Phys: Katelyn Orozco NP Technologist: AUBREE Exam Location: [facility] [place] Indication: cp sob BP: 102 / 68 HR: 48 Rhythm: Sinus Technical Quality: Adequate MEASUREMENTS (Male / Female) Normal Values 2D ECHO LV Diastolic Diameter PLAX 4.3 cm 4.2 - 5.9 / 3.9 - 5.3 cm IVS Diastolic Thickness 1.4 cm 0.6 - 1.0 / 0.6 - 0.9 cm IVS Systolic Thickness 1.8 cm LVPW Diastolic Thickness 1.1 cm 0.6 - 1.0 / 0.6 - 0.9 cm LVPW Systolic Thickness 1.7 cm LVOT Diameter 2.0 cm LV Ejection Fraction 2D Teich 57.5 % LV Ejection Fraction MOD 4C 60.8 % LV Ejection Fraction MOD 2C 52.3 % LV Ejection Fraction 2C AL 50.9 % LA Diameter 2.9 cm RA Systolic Volume 4C AL 36.8 ml RA Systolic Volume 4C MOD 35.9 ml LA Sys Volume AL 38.3 cm cubed LA Sys Volume Index AL 18.7 cm cubed/m squared Aorta at Sinotubular Diameter 2.8 cm M-MODE LA Ao Ratio MM 1.1 AV Cusp Separation MM 1.3 cm DOPPLER AV Peak Velocity 139.0 cm/s LVOT Peak Velocity 117.0 cm/s AV Area Cont Eq vti 2.4 cm squared AV Area Cont Eq pk 2.8 cm squared MV Peak Velocity 118.0 cm/s MV Area PHT 5.2 cm squared Mitral E to A Ratio 1.1 TV Peak Velocity 201.0 cm/s TR Peak Velocity 227.0 cm/s TR Peak Gradient 20.6 mmHg TV Peak E Velocity 72.0 cm/s PV Peak Velocity 95.0 cm/s FINDINGS Left Ventricle Left ventricle is normal in size. LV systolic function is normal with EF of 55-60%. No regional wall motion abnormalities are seen Right Ventricle Normal in size and function Right Atrium Normal in size Left Atrium Normal in size Mitral Valve Structurally normal valve. Mild mitral regurgitation Aortic Valve Grossly normal. No significant stenosis or regurgitation Tricuspid Valve Insufficient TR jet to calculate RVSP Pulmonic Valve Not well-visualized Pericardium Normal Aorta Normal in size IVC Appears to be normal CONCLUSIONS LV systolic function is normal with EF 55-60%. Mild mitral regurgitation. Oneil Camilo MD (Electronically Signed) Final Date: 07 January 2025 09:45 S
== END 2024-12-21 11:08 | disposition home or self-care (01) ==
LOC: RAD 11:08
PROVIDERS: PCP Family Medicine; Visit Provider Nurse Practitioner Family
DX: I10 Essential (primary) hypertension (principal); I34.0 Nonrheumatic mitral (valve) insufficiency
CPT/HCPCS: 93005; 93306; 99214

== ENCOUNTER → 2024-12-24 08:25 | Outpatient (BNVA) | payer MEDICARE, OTHER, SELFPAY | PROVIDERS: PCP Family Medicine; Visit Provider Nurse Practitioner Family | DX: I25.10 Atherosclerotic heart disease of native coronary artery without angina pectoris (principal); I95.9 Hypotension, unspecified; R00.1 Bradycardia, unspecified; F17.220 Nicotine dependence, chewing tobacco, uncomplicated; I12.9 Hypertensive chronic kidney disease with stage 1 through stage 4 chronic kidney disease, or unspecified chronic kidney disease; N18.9 Chronic kidney disease, unspecified; I25.2 Old myocardial infarction | CPT/HCPCS: 99214 ==

== ENCOUNTER 2024-12-28 09:49 | Outpatient (RCR) | payer SELFPAY | END 2025-01-27 23:59 | disposition home or self-care (01) | LOC: CR 09:49 | PROVIDERS: PCP Family Medicine; Referring Provider Internal Medicine; Visit Provider Internal Medicine | DX: Z95.5 Presence of coronary angioplasty implant and graft (principal) ==

== ENCOUNTER 2025-01-28 14:34 | Outpatient (RCR) | payer SELFPAY | END 2025-02-27 23:59 | disposition home or self-care (01) | LOC: CR 14:34 | PROVIDERS: PCP Family Medicine; Referring Provider Internal Medicine; Visit Provider Internal Medicine | DX: Z95.5 Presence of coronary angioplasty implant and graft (principal) ==

== ENCOUNTER 2025-03-01 12:57 | Outpatient (RCR) | payer SELFPAY | END 2025-03-29 23:59 | disposition home or self-care (01) | LOC: CR 12:57 | PROVIDERS: PCP Family Medicine; Referring Provider Internal Medicine; Visit Provider Internal Medicine | DX: Z95.5 Presence of coronary angioplasty implant and graft (principal) ==

== ENCOUNTER 2025-03-31 12:53 | Outpatient (RCR) | payer SELFPAY | END 2025-04-29 23:59 | disposition home or self-care (01) | LOC: CR 12:53 | PROVIDERS: PCP Family Medicine; Referring Provider Internal Medicine; Visit Provider Internal Medicine | DX: Z95.5 Presence of coronary angioplasty implant and graft (principal) ==

== ENCOUNTER 2025-05-10 09:03 | Outpatient (RCR) | payer SELFPAY | END 2025-05-29 23:59 | disposition home or self-care (01) | LOC: CR 09:03 | PROVIDERS: PCP Family Medicine; Referring Provider Internal Medicine; Visit Provider Internal Medicine | DX: Z95.5 Presence of coronary angioplasty implant and graft (principal) ==

== ENCOUNTER 2025-05-30 11:20 | Outpatient (RCR) | payer SELFPAY | END 2025-06-29 23:59 | disposition home or self-care (01) | LOC: CR 11:20 | PROVIDERS: PCP Family Medicine; Referring Provider Internal Medicine; Visit Provider Internal Medicine | DX: Z95.5 Presence of coronary angioplasty implant and graft (principal) ==